=== PATIENT | female | born 1965 | race Caucasian/White ===

== ENCOUNTER 2020-06-22 15:55 | Inpatient (IN) ==
[2020-06-22] MEDS ORDERED: ASPIRIN 325 MG TABLET PO STA (16:30)
[2020-06-22] MEDS ORDERED: FAMOTIDINE 20 MG/2 ML VIAL IV STA (16:33)
[2020-06-22 16:38] LABS: Basophils % 0.4 % (0.0-0.8); Eosinophils # 0.1 10*3/uL (0.0-0.87); Hematocrit 47.1 VOL% (35.7-47.0); Hemoglobin 15.8 GM/DL (12.0-16.0); Immature Granulocytes % 0.3 %; Immature Granulocytes Absolute 0.03 #; Lymphocytes # 2.6 10*3/uL (1.4-4.0); Lymphocytes % 25.4 % (21.3-54.2); Mean Corpuscular HGB Conc 33.5 GM/DL (32-36); Mean Corpuscular Volume 99.8 FL (87-102); Mean Platelet Volume 9.2 FL (9.6-12.0); Monocytes % 5.7 % (1.7-12.7); Neutrophils % 67.2 % (38.7-73.9); Platelet Count 228 T/CUMM (130-400); Red Blood Count 4.72 MC/CUMM (3.8-5.5); Red Cell Distribution Width 13.1 % (9.3-17.3); White Blood Count 10.4 T/CUMM (4-12)
[2020-06-22 16:47] LABS: PT Patient Result 10.5 SECS (9.8-11.9); Partial Thromboplastin Time 28.5 SECS (23.9-33.8)
[2020-06-22 16:54] LABS: Albumin 3.3 G/DL (3.4-5.0); Bilirubin,Total 0.8 MG/DL (0.2-1.0); Calcium 8.5 MG/DL (8.5-10.1); Osmolality,Calculated 274.7 MOS/KG (273-304); Total Protein 6.5 G/DL (6.4-8.3)
[2020-06-22 17:35] LABS: ABG Base Excess 1.3 MMOL/L (-2.5-2.5); ABG HCO3 25.4 MMOL/L (20-26); ABG Oxygen Saturation 94.1 % (95-100); ABG PCO2 36.6 MM HG (35-48); ABG PH 7.443 (7.35-7.45); ABG PO2 70.8 MM HG (80-95); ABG TCO2 21.1 MMOL/L (23-27)
[2020-06-22] MEDS ORDERED: GLUCAGON 1 MG VIAL IM PRN (17:59)
[2020-06-22] MEDS ORDERED: DEXTROSE 50% 25 GM/50 ML VIAL IV PRN (17:59)
[2020-06-22] MEDS ORDERED: ONDANSETRON 4 MG/2 ML VIAL IV PRN (17:59)
[2020-06-22] MEDS ORDERED: MORPHINE 4 MG/1 ML VIAL IV PRN (18:06)
[2020-06-22] MEDS: ALBUTEROL 2.5 MG/3 ML NEB RESP TX SCH (19:36)
[2020-06-22] MEDS: methylPREDNISolone SOD SUC 40 MG/1 ML VIAL IV SCH (21:44)
[2020-06-22] MEDS: ENOXAPARIN 80 MG/0.8 ML SYRINGE SUBCUT SCH (21:44)
[2020-06-23] MEDS: ALBUTEROL 2.5 MG/3 ML NEB RESP TX SCH ×4 (00:06→19:30)
[2020-06-23] MEDS: methylPREDNISolone SOD SUC 40 MG/1 ML VIAL IV SCH ×3 (03:29→17:31)
[2020-06-23] MEDS: ENOXAPARIN 80 MG/0.8 ML SYRINGE SUBCUT SCH ×2 (06:24→17:31)
[2020-06-23 07:16] LABS: Basophils % 0.4 % (0.0-0.8); Hematocrit 50.1 VOL% (35.7-47.0); Hemoglobin 16.9 GM/DL (12.0-16.0); Immature Granulocytes % 0.2 %; Immature Granulocytes Absolute 0.01 #; Lymphocytes # 0.6 10*3/uL (1.4-4.0); Lymphocytes % 10.6 % (21.3-54.2); Mean Corpuscular HGB Conc 33.7 GM/DL (32-36); Mean Corpuscular Volume 99.8 FL (87-102); Mean Platelet Volume 9.5 FL (9.6-12.0); Monocytes % 0.7 % (1.7-12.7); Neutrophils % 88.1 % (38.7-73.9); Platelet Count 220 T/CUMM (130-400); Red Blood Count 5.02 MC/CUMM (3.8-5.5); White Blood Count 5.4 T/CUMM (4-12)
[2020-06-23 07:37] LABS: Lymphocytes 13 % (20-55); Ovalocytes Slight; Platelet Estimate Adequate; Segmented Neutrophils 87 % (50-85); Total Cells Counted 100
[2020-06-23 07:45] LABS: Calcium 9.1 MG/DL (8.5-10.1); Risk Ratio 2.49; Thyroid Stimulating Hormone 0.73 uIU/ml (0.358-3.74); VLDL CHOLESTEROL 9.8 MG/DL
[2020-06-23] MEDS: ASPIRIN EC 81 MG TABLET PO SCH (08:41)
[2020-06-23] MEDS: PANTOPRAZOLE 40 MG TABLET PO SCH (08:41)
[2020-06-23] MEDS: cefTRIAXone 2,000 MG in SYRINGE 1 EACH IV SCH (08:41)
[2020-06-23] MEDS: ATORVASTATIN 40 MG TABLET PO SCH (08:41)
[2020-06-23] MEDS: AZITHROMYCIN 250 MG TABLET PO SCH (10:13)
[2020-06-23 13:27] LABS: Apearance,Urine CLEAR (Clear); Bilirubin,Urine Negative (Negative); Blood, Urine Negative (Negative); Glucose,Urine (UA) Negative (Negative); Ketones,Urine Negative (Negative); Mucus,Urine Occasional /LPF (Occasional); Nitrite,Urine Negative (Negative); Protein,Urine Negative; RBC,Urine 2 /HPF (0-4); Squamous Epithelial Cell,Urine Few /HPF (0-10); Urine Color Yellow (Yellow); Urine Specific Gravity 1.023 (1.001-1.035); Urine Urobilinogen < 2.0 EU/DL (0.2-1.0); WBC,Urine 1 /HPF (0-6)
[2020-06-24] MEDS: ALBUTEROL 2.5 MG/3 ML NEB RESP TX SCH ×3 (00:18→13:05)
[2020-06-24] MEDS: methylPREDNISolone SOD SUC 40 MG/1 ML VIAL IV SCH ×2 (02:21→10:52)
[2020-06-24] MEDS: ENOXAPARIN 80 MG/0.8 ML SYRINGE SUBCUT SCH (06:15)
[2020-06-24 06:34] LABS: Troponin I 0.288 NG/ML (0.00-0.045)
[2020-06-24] MEDS ORDERED: ACETAMINOPHEN 325 MG TABLET PO PRN (08:58)
[2020-06-24] MEDS: ASPIRIN EC 81 MG TABLET PO SCH (09:12)
[2020-06-24] MEDS: cefTRIAXone 2,000 MG in SYRINGE 1 EACH IV SCH (09:13)
[2020-06-24] MEDS: AZITHROMYCIN 250 MG TABLET PO SCH (09:13)
[2020-06-24] MEDS: PANTOPRAZOLE 40 MG TABLET PO SCH (09:13)
[2020-06-24] MEDS: ATORVASTATIN 40 MG TABLET PO SCH (09:14)
[2020-06-24 11:54] VITALS: BP 125/72
== END 2020-06-24 13:54 | disposition home or self-care (01) | DRG 192 ==
LOC: N.ED 15:55 → N.EDINP 17:59 → N.TELES 18:36
PROVIDERS: ADMIT Internal Medicine; ATTEND Internal Medicine

== ENCOUNTER 2020-07-31 19:19 | Observation (INO) ==
[2020-07-31 20:19] LABS: Basophils # 0.1 10*3/uL (0.0-0.2); Basophils % 0.6 % (0.0-0.8); Eosinophils # 0.1 10*3/uL (0.0-0.87); Eosinophils % 0.6 % (0.00-10.9); Hematocrit 45.4 VOL% (35.7-47.0); Hemoglobin 15.3 GM/DL (12.0-16.0); Immature Granulocytes % 0.3 %; Immature Granulocytes Absolute 0.04 #; Lymphocytes # 4.8 10*3/uL (1.4-4.0); Lymphocytes % 33.2 % (21.3-54.2); Mean Corpuscular HGB Conc 33.7 GM/DL (32-36); Mean Corpuscular Volume 100.9 FL (87-102); Monocytes % 5.6 % (1.7-12.7); Neutrophils % 59.7 % (38.7-73.9); Platelet Count 224 T/CUMM (130-400); Red Cell Distribution Width 13.6 % (9.3-17.3); White Blood Count 14.3 T/CUMM (4-12)
[2020-07-31] MEDS ORDERED: SODIUM CHLORIDE 0.9% 1,000 ML IV STA (20:24)
[2020-07-31 20:30] LABS: Albumin 3.1 G/DL (3.4-5.0); Bilirubin,Total 0.7 MG/DL (0.2-1.0); Calcium 8.4 MG/DL (8.5-10.1); Osmolality,Calculated 280.5 MOS/KG (273-304); PT Patient Result 10.3 SECS (9.8-11.9); Partial Thromboplastin Time 24.8 SECS (23.9-33.8); Total Protein 6.6 G/DL (6.4-8.3)
[2020-07-31 20:35] LABS: Troponin I 0.084 NG/ML (0.00-0.045)
[2020-07-31 20:40] LABS: Anisocytosis 1+; Eosinophils 1 % (0-10); Lymphocytes 35 % (20-55); Macrocytosis 1+; Platelet Estimate Normal; Segmented Neutrophils 61 % (50-85); Total Cells Counted 100
[2020-08-01] MEDS ORDERED: MAGNESIUM SULF RIDER 2 GM in PREMIX 1 EACH IV PRN (01:29)
[2020-08-01] MEDS ORDERED: SODIUM CHLORIDE 0.45% 1,000 ML IV SCH (01:29)
[2020-08-01] MEDS ORDERED: MAGNESIUM SULF RIDER 4 GM in PREMIX 1 EACH IV PRN (01:29)
[2020-08-01] MEDS ORDERED: INFLUENZA VIRUS VACCINE 0.5 ML SYRINGE IM ONE (02:08)
[2020-08-01 07:44] VITALS: BP 134/63
== END 2020-08-01 09:55 | disposition home or self-care (01) ==
LOC: N.EDINP 19:19 → N.ED 19:19 → N.TELES 08-01 01:13
PROVIDERS: ADMIT Internal Medicine Cardiovascular Disease; ATTEND Internal Medicine Cardiovascular Disease

== ENCOUNTER 2021-07-30 02:24 | Observation (INO) ==
[2021-07-30] MEDS ORDERED: PIPERACILLIN/TAZOBACTAM 3,375 MG in SODIUM CHLORIDE 0.9% 100 ML IV STA (03:09)
[2021-07-30] MEDS ORDERED: methylPREDNISolone SOD SUC 125 MG/2 ML VIAL IV STA (03:09)
[2021-07-30] MEDS ORDERED: ONDANSETRON 4 MG/2 ML VIAL IV STA (03:09)
[2021-07-30] MEDS ORDERED: SODIUM CHLORIDE 0.9% 500 ML IV STA (03:09)
[2021-07-30] MEDS ORDERED: ALBUTEROL NEB SOLN 5 MG/ML 20 ML/BOTTLE CONT NEB SCH (03:30)
[2021-07-30 03:39] LABS: Basophils % 0.5 % (0.0-0.8); Eosinophils # 0.2 10*3/uL (0.0-0.87); Eosinophils % 1.9 % (0.00-10.9); Hematocrit 49.7 VOL% (35.7-47.0); Hemoglobin 16.5 GM/DL (12.0-16.0); Immature Granulocytes % 0.2 %; Immature Granulocytes Absolute 0.02 #; Lymphocytes # 2.3 10*3/uL (1.4-4.0); Lymphocytes % 26.6 % (21.3-54.2); Mean Corpuscular HGB Conc 33.2 GM/DL (32-36); Mean Corpuscular Volume 99.2 FL (87-102); Mean Platelet Volume 9.6 FL (9.6-12.0); Monocytes % 7.4 % (1.7-12.7); Neutrophils % 63.4 % (38.7-73.9); Platelet Count 215 T/CUMM (130-400); Red Blood Count 5.01 MC/CUMM (3.8-5.5); Red Cell Distribution Width 13.4 % (9.3-17.3); White Blood Count 8.5 T/CUMM (4-12)
[2021-07-30 04:04] LABS: Albumin 3.5 G/DL (3.4-5.0); Bilirubin,Total 0.7 MG/DL (0.20-1.00); Calcium 8.7 MG/DL (8.5-10.1); Osmolality,Calculated 271.8 MOS/KG (273-304)
[2021-07-30] MEDS ORDERED: ASPIRIN EC 325 MG TABLET PO STA (04:13)
[2021-07-30] MEDS ORDERED: ENOXAPARIN 100 MG/ML SYRINGE SUBCUT STA (04:13)
[2021-07-30 04:25] LABS: ABG Base Excess -0.3 MMOL/L (-2.5-2.5); ABG HCO3 23.9 MMOL/L (20-26); ABG Oxygen Saturation 87.1 % (95-100); ABG PCO2 42.1 MM HG (35-48); ABG PH 7.381 (7.35-7.45); ABG PO2 58.1 MM HG (80-95); ABG TCO2 21.2 MMOL/L (23-27)
[2021-07-30] MEDS ORDERED: DEXTROSE 50% 25 GM/50 ML VIAL IV PRN (05:37)
[2021-07-30] MEDS ORDERED: GLUCAGON 1 MG VIAL IM PRN (05:37)
[2021-07-30] MEDS ORDERED: ACETAMINOPHEN 325 MG TABLET PO PRN (05:37)
[2021-07-30] MEDS ORDERED: hydrALAZINE 20 MG/1 ML VIAL IV PRN (05:37)
[2021-07-30] MEDS ORDERED: DOCUSATE SODIUM 100 MG CAPSULE PO PRN (05:37)
[2021-07-30] MEDS: ALBUTEROL/IPRATROPIUM 3 ML NEB RESP TX SCH ×3 (07:43→20:25)
[2021-07-30 08:10] LABS: Risk Ratio 2.4; Thyroid Stimulating Hormone 1.15 uIU/ml (0.358-3.74); VLDL Cholesterol 8.6 MG/DL
[2021-07-30] MEDS ORDERED: ENOXAPARIN 40 MG/0.4 ML SYRINGE SUBCUT SCH (09:00)
[2021-07-30] MEDS: methylPREDNISolone SOD SUC 40 MG/1 ML VIAL IV SCH ×2 (09:20→20:58)
[2021-07-30] MEDS: PANTOPRAZOLE 40 MG TABLET PO SCH (09:23)
[2021-07-30] MEDS: LEVOFLOXACIN INJ 750 MG/150 ML PREMIX IV SCH (09:28)
[2021-07-30 09:51] LABS: Bilirubin,Urine Negative (Negative); Blood, Urine Negative (Negative); Glucose,Urine (UA) Negative (Negative); Ketones,Urine Negative (Negative); Mucus,Urine Occasional /LPF (Occasional); Nitrite,Urine Negative (Negative); Protein,Urine Negative; RBC,Urine 4 /HPF (0-4); Squamous Epithelial Cell,Urine Occasional /HPF (0-10); Urine Appearance Slightly Hazy (Clear); Urine Color Yellow (Yellow); Urine Specific Gravity 1.023 (1.001-1.035); Urine Urobilinogen < 2.0 EU/DL (0.2-1.0)
[2021-07-30 10:18] LABS: Barbiturates Screen,Urine Negative (Negative); Benzodiazepines Screen,Urine Negative (Negative); Cannabinoid Screen,Urine Positive (Negative); Opiate Screen,Urine Negative (Negative); Phencyclidine Screen,Urine Negative (Negative)
[2021-07-30] MEDS: ENOXAPARIN 80 MG/0.8 ML SYRINGE SUBCUT SCH (14:04)
[2021-07-30] MEDS ORDERED: INFLUENZA VIRUS VACCINE 0.5 ML SYRINGE IM ONE (14:11)
[2021-07-31] MEDS: ALBUTEROL/IPRATROPIUM 3 ML NEB RESP TX SCH ×2 (01:33→07:18)
[2021-07-31] MEDS: ENOXAPARIN 80 MG/0.8 ML SYRINGE SUBCUT SCH (02:38)
[2021-07-31 04:42] LABS: Barbiturates Screen,Urine Negative (Negative); Benzodiazepines Screen,Urine Negative (Negative); Cannabinoid Screen,Urine Positive (Negative); Opiate Screen,Urine Positive (Negative); Phencyclidine Screen,Urine Negative (Negative)
[2021-07-31 05:45] LABS: Basophils % 0.3 % (0.0-0.8); Hematocrit 47.2 VOL% (35.7-47.0); Hemoglobin 15.8 GM/DL (12.0-16.0); Immature Granulocytes % 0.5 %; Immature Granulocytes Absolute 0.06 #; Lymphocytes # 1.1 10*3/uL (1.4-4.0); Lymphocytes % 10.4 % (21.3-54.2); Mean Corpuscular HGB Conc 33.5 GM/DL (32-36); Mean Corpuscular Volume 99.6 FL (87-102); Mean Platelet Volume 9.7 FL (9.6-12.0); Monocytes % 2.9 % (1.7-12.7); Neutrophils % 85.9 % (38.7-73.9); Platelet Count 208 T/CUMM (130-400); Red Blood Count 4.74 MC/CUMM (3.8-5.5); Red Cell Distribution Width 13.2 % (9.3-17.3); White Blood Count 10.9 T/CUMM (4-12)
[2021-07-31 06:14] LABS: Calcium 8.9 MG/DL (8.5-10.1); Potassium 4.1 MMOL/L (3.5-5.1)
[2021-07-31] MEDS: methylPREDNISolone SOD SUC 40 MG/1 ML VIAL IV SCH (09:21)
[2021-07-31] MEDS: PANTOPRAZOLE 40 MG TABLET PO SCH (09:21)
[2021-07-31] MEDS: LEVOFLOXACIN INJ 750 MG/150 ML PREMIX IV SCH (09:22)
[2021-07-31 09:52] VITALS: BP 132/68
== END 2021-07-31 11:08 | disposition home or self-care (01) ==
LOC: N.ED 02:24 → N.EDINP 02:24 → N.TELEN 13:22
PROVIDERS: ADMIT Internal Medicine; ATTEND Internal Medicine

== ENCOUNTER 2022-02-08 16:59 | Inpatient (IN) ==
[2022-02-08] MEDS ORDERED: ALBUTEROL/IPRATROPIUM 3 ML NEB RESP TX STA (18:23)
[2022-02-08] MEDS ORDERED: SODIUM CHLORIDE 0.9% 500 ML IV STA (18:23)
[2022-02-08] MEDS ORDERED: methylPREDNISolone SOD SUC 125 MG/2 ML VIAL IV STA (18:23)
[2022-02-08] MEDS ORDERED: cefTRIAXone 1,000 MG in SODIUM CHLORIDE 0.9% 100 ML IV STA (18:23)
[2022-02-08] MEDS ORDERED: ONDANSETRON 4 MG/2 ML VIAL IV STA (18:23)
[2022-02-08] MEDS ORDERED: ALBUTEROL NEB SOLN 5 MG/ML 20 ML/BOTTLE CONT NEB SCH (18:30)
[2022-02-08 18:56] LABS: Basophils % 0.4 % (0.0-0.8); Eosinophils # 0.1 10*3/uL (0.0-0.87); Eosinophils % 2.4 % (0.00-10.9); Hematocrit 45.6 VOL% (35.7-47.0); Hemoglobin 15.3 GM/DL (12.0-16.0); Immature Granulocytes % 0.4 %; Immature Granulocytes Absolute 0.02 #; Lymphocytes # 1.9 10*3/uL (1.4-4.0); Mean Corpuscular HGB Conc 33.6 GM/DL (32-36); Mean Corpuscular Volume 98.1 FL (87-102); Mean Platelet Volume 9.7 FL (9.6-12.0); Monocytes # 0.5 10*3/uL (0.11-0.8); Monocytes % 9.1 % (1.7-12.7); Neutrophils % 52.7 % (38.7-73.9); Platelet Count 197 T/CUMM (130-400); Red Blood Count 4.65 MC/CUMM (3.8-5.5); Red Cell Distribution Width 13.8 % (9.3-17.3); White Blood Count 5.5 T/CUMM (4-12)
[2022-02-08 18:58] LABS: Alanine Aminotransferase 19 U/L (13-56); Albumin 3.1 G/DL (3.4-5.0); Alkaline Phosphatase 116 U/L (45-117); Aspartate Amino Transferase 21 U/L (0-37); Bilirubin,Total < 0.39 MG/DL (0.20-1.00); Blood Urea Nitrogen 12 MG/DL (7-18); Calcium 8.6 MG/DL (8.5-10.1); Carbon Dioxide 27 MMOL/L (21-32); Chloride 108 MMOL/L (98-107); Estimated Glom Filtration Rate 100 ML/MIN; Glucose 90 MG/DL (74-106); Osmolality,Calculated 280.3 MOS/KG (273-304); Potassium 4.2 MMOL/L (3.5-5.1); Sodium 141 MMOL/L (136-145); Total Protein 6.4 G/DL (6.4-8.2)
[2022-02-08] MEDS ORDERED: FAMOTIDINE 20 MG/2 ML VIAL IV STA (19:31)
[2022-02-08] MEDS ORDERED: diphenhydrAMINE 50 MG/1 ML VIAL IV STA (19:31)
[2022-02-08] MEDS ORDERED: ENOXAPARIN 100 MG/ML SYRINGE SUBCUT STA (20:12)
[2022-02-08] MEDS ORDERED: GLUCAGON 1 MG VIAL IM PRN (20:20)
[2022-02-08] MEDS ORDERED: ACETAMINOPHEN 325 MG TABLET PO PRN (20:20)
[2022-02-08] MEDS ORDERED: ONDANSETRON 4 MG/2 ML VIAL IV PRN (20:20)
[2022-02-08] MEDS ORDERED: ASPIRIN CHEW 81 MG TABLET PO ONE (20:28)
[2022-02-08] MEDS ORDERED: MORPHINE 2 MG/1 ML SYRINGE IV PRN (20:28)
[2022-02-08] MEDS ORDERED: DEXTROSE 10% 250 ML BAG IV PRN (20:40)
[2022-02-08] MEDS ORDERED: NICOTINE 14 MG/24 HR PATCH TRANSDERM PRN (21:25)
[2022-02-08] MEDS: DOCUSATE SODIUM 100 MG CAPSULE PO SCH (21:37)
[2022-02-08] MEDS: carvediloL 3.125 MG TABLET PO SCH (21:38)
[2022-02-08] MEDS: guaiFENesin/DM ER 600-30 MG TABLET PO SCH (21:38)
[2022-02-08] MEDS: AZITHROMYCIN INJ 500 MG in SODIUM CHLORIDE 0.9% 250 ML IV SCH (22:34)
[2022-02-09] MEDS: ALBUTEROL/IPRATROPIUM 3 ML NEB RESP TX SCH ×4 (01:11→19:30)
[2022-02-09] MEDS: methylPREDNISolone SOD SUC 40 MG/1 ML VIAL IV SCH ×3 (02:16→18:00)
[2022-02-09 04:42] LABS: Basophils % 0.2 % (0.0-0.8); Hematocrit 47.2 VOL% (35.7-47.0); Hemoglobin 15.5 GM/DL (12.0-16.0); Immature Granulocytes % 0.2 %; Immature Granulocytes Absolute 0.01 #; Lymphocytes # 0.6 10*3/uL (1.4-4.0); Lymphocytes % 13.2 % (21.3-54.2); Mean Corpuscular HGB Conc 32.8 GM/DL (32-36); Mean Corpuscular Volume 100.4 FL (87-102); Mean Platelet Volume 9.5 FL (9.6-12.0); Monocytes % 0.7 % (1.7-12.7); Neutrophils % 85.7 % (38.7-73.9); Platelet Count 177 T/CUMM (130-400); Red Cell Distribution Width 13.8 % (9.3-17.3); White Blood Count 4.2 T/CUMM (4-12)
[2022-02-09 04:50] LABS: PT Patient Result 11.1 SECS (10.5-12.0); Partial Thromboplastin Time 33.8 SECS (23.8-32.1)
[2022-02-09 05:05] LABS: Calcium 8.4 MG/DL (8.5-10.1); Osmolality,Calculated 281.4 MOS/KG (273-304); Potassium 4.3 MMOL/L (3.5-5.1); Risk Ratio 2.53; VLDL Cholesterol 12.4 MG/DL
[2022-02-09] MEDS: PANTOPRAZOLE 40 MG TABLET PO SCH (09:09)
[2022-02-09] MEDS: DOCUSATE SODIUM 100 MG CAPSULE PO SCH ×2 (09:09→21:32)
[2022-02-09] MEDS: ASPIRIN EC 325 MG TABLET PO SCH (09:09)
[2022-02-09] MEDS: lisinopriL 2.5 MG TABLET PO SCH (09:09)
[2022-02-09] MEDS: guaiFENesin/DM ER 600-30 MG TABLET PO SCH ×2 (09:09→21:31)
[2022-02-09] MEDS: carvediloL 3.125 MG TABLET PO SCH ×2 (09:10→21:32)
[2022-02-09] MEDS: ENOXAPARIN 80 MG/0.8 ML SYRINGE SUBCUT SCH ×3 (09:10→21:33)
[2022-02-09] MEDS ORDERED: cefTRIAXone 1,000 MG in SODIUM CHLORIDE 0.9% 100 ML IV SCH (18:00)
[2022-02-09] MEDS: AZITHROMYCIN INJ 500 MG in SODIUM CHLORIDE 0.9% 250 ML IV SCH (21:31)
[2022-02-09] MEDS: ATORVASTATIN 40 MG TABLET PO SCH (21:32)
[2022-02-10] MEDS: ALBUTEROL/IPRATROPIUM 3 ML NEB RESP TX SCH ×4 (00:50→19:52)
[2022-02-10] MEDS: methylPREDNISolone SOD SUC 40 MG/1 ML VIAL IV SCH ×3 (01:45→17:51)
[2022-02-10 04:39] LABS: Basophils % 0.2 % (0.0-0.8); Hematocrit 45.8 VOL% (35.7-47.0); Hemoglobin 15.3 GM/DL (12.0-16.0); Immature Granulocytes % 0.4 %; Immature Granulocytes Absolute 0.06 #; Lymphocytes # 1.2 10*3/uL (1.4-4.0); Mean Corpuscular HGB Conc 33.4 GM/DL (32-36); Mean Corpuscular Volume 99.8 FL (87-102); Mean Platelet Volume 9.4 FL (9.6-12.0); Monocytes # 0.2 10*3/uL (0.11-0.8); Monocytes % 1.4 % (1.7-12.7); Platelet Count 195 T/CUMM (130-400); Red Blood Count 4.59 MC/CUMM (3.8-5.5); Red Cell Distribution Width 13.9 % (9.3-17.3); White Blood Count 14.7 T/CUMM (4-12)
[2022-02-10 05:02] LABS: Calcium 8.6 MG/DL (8.5-10.1); Osmolality,Calculated 279.5 MOS/KG (273-304); Potassium 4.6 MMOL/L (3.5-5.1)
[2022-02-10] MEDS: PANTOPRAZOLE 40 MG TABLET PO SCH (09:14)
[2022-02-10] MEDS: carvediloL 3.125 MG TABLET PO SCH ×2 (09:14→21:21)
[2022-02-10] MEDS: ASPIRIN EC 325 MG TABLET PO SCH (09:14)
[2022-02-10] MEDS: guaiFENesin/DM ER 600-30 MG TABLET PO SCH ×2 (09:14→21:21)
[2022-02-10] MEDS: DOCUSATE SODIUM 100 MG CAPSULE PO SCH ×2 (09:14→21:21)
[2022-02-10] MEDS: lisinopriL 2.5 MG TABLET PO SCH (09:14)
[2022-02-10] MEDS: ENOXAPARIN 80 MG/0.8 ML SYRINGE SUBCUT SCH ×2 (09:16→21:21)
[2022-02-10] MEDS: NICOTINE 14 MG/24 HR PATCH TRANSDERM SCH (09:32)
[2022-02-10] MEDS: ATORVASTATIN 40 MG TABLET PO SCH (21:21)
[2022-02-10] MEDS: AZITHROMYCIN INJ 500 MG in SODIUM CHLORIDE 0.9% 250 ML IV SCH (21:21)
[2022-02-11] MEDS: ALBUTEROL/IPRATROPIUM 3 ML NEB RESP TX SCH ×4 (01:20→19:50)
[2022-02-11] MEDS: methylPREDNISolone SOD SUC 40 MG/1 ML VIAL IV SCH ×2 (02:51→14:15)
[2022-02-11 04:55] LABS: Basophils % 0.1 % (0.0-0.8); Eosinophils % 0.1 % (0.00-10.9); Hematocrit 45.4 VOL% (35.7-47.0); Hemoglobin 14.9 GM/DL (12.0-16.0); Immature Granulocytes % 0.4 %; Immature Granulocytes Absolute 0.06 #; Lymphocytes % 13.6 % (21.3-54.2); Mean Corpuscular HGB Conc 32.8 GM/DL (32-36); Mean Corpuscular Volume 101.1 FL (87-102); Mean Platelet Volume 9.9 FL (9.6-12.0); Monocytes # 0.4 10*3/uL (0.11-0.8); Monocytes % 2.4 % (1.7-12.7); Neutrophils % 83.4 % (38.7-73.9); Platelet Count 211 T/CUMM (130-400); Red Blood Count 4.49 MC/CUMM (3.8-5.5); Red Cell Distribution Width 13.9 % (9.3-17.3); White Blood Count 14.7 T/CUMM (4-12)
[2022-02-11 05:14] LABS: Calcium 8.2 MG/DL (8.5-10.1); Osmolality,Calculated 288.1 MOS/KG (273-304); Potassium 3.6 MMOL/L (3.5-5.1)
[2022-02-11] MEDS: NICOTINE 14 MG/24 HR PATCH TRANSDERM SCH (10:04)
[2022-02-11] MEDS ORDERED: REGADENOSON 0.4 MG/5 ML SYRINGE IV ONE (10:32)
[2022-02-11] MEDS: carvediloL 3.125 MG TABLET PO SCH ×2 (10:59→21:14)
[2022-02-11] MEDS: guaiFENesin/DM ER 600-30 MG TABLET PO SCH ×2 (10:59→21:13)
[2022-02-11] MEDS: lisinopriL 2.5 MG TABLET PO SCH (11:00)
[2022-02-11] MEDS: ASPIRIN EC 325 MG TABLET PO SCH (11:00)
[2022-02-11] MEDS: ENOXAPARIN 80 MG/0.8 ML SYRINGE SUBCUT SCH ×3 (11:00→21:14)
[2022-02-11] MEDS: PANTOPRAZOLE 40 MG TABLET PO SCH (11:00)
[2022-02-11] MEDS: DOCUSATE SODIUM 100 MG CAPSULE PO SCH ×2 (11:00→21:13)
[2022-02-11 12:58] LABS: Arterial Base Excess iSTAT 3 MMOL/L (-2.5-2.5); Arterial Bicarbonate iSTAT 27.7 MMOL/L (20-26); Arterial O2 Saturation iSTAT 87 % (95-100); Arterial PCO2 iSTAT 43 MM HG (35-48); Arterial PO2 iSTAT 52 MM HG (80-95); Arterial Total CO2 iSTAT 29 MMO/L (23-27); Arterial pH iSTAT 7.421 (7.35-7.45)
[2022-02-11] MEDS: AZITHROMYCIN INJ 500 MG in SODIUM CHLORIDE 0.9% 250 ML IV SCH (21:13)
[2022-02-11] MEDS: ATORVASTATIN 40 MG TABLET PO SCH (21:14)
[2022-02-12] MEDS: ALBUTEROL/IPRATROPIUM 3 ML NEB RESP TX SCH ×2 (01:10→07:05)
[2022-02-12] MEDS: methylPREDNISolone SOD SUC 40 MG/1 ML VIAL IV SCH (04:13)
[2022-02-12 04:56] LABS: Basophils % 0.3 % (0.0-0.8); Eosinophils # 0.1 10*3/uL (0.0-0.87); Eosinophils % 0.6 % (0.00-10.9); Hematocrit 46.1 VOL% (35.7-47.0); Hemoglobin 15.2 GM/DL (12.0-16.0); Immature Granulocytes % 0.2 %; Immature Granulocytes Absolute 0.02 #; Lymphocytes # 3.7 10*3/uL (1.4-4.0); Mean Corpuscular Volume 99.6 FL (87-102); Mean Platelet Volume 9.3 FL (9.6-12.0); Monocytes # 0.6 10*3/uL (0.11-0.8); Monocytes % 5.4 % (1.7-12.7); Neutrophils % 61.5 % (38.7-73.9); Platelet Count 204 T/CUMM (130-400); Red Blood Count 4.63 MC/CUMM (3.8-5.5); Red Cell Distribution Width 13.7 % (9.3-17.3); White Blood Count 11.4 T/CUMM (4-12)
[2022-02-12 05:09] LABS: Calcium 8.4 MG/DL (8.5-10.1); Osmolality,Calculated 286.1 MOS/KG (273-304); Potassium 3.6 MMOL/L (3.5-5.1)
[2022-02-12] MEDS ORDERED: ENOXAPARIN 40 MG/0.4 ML SYRINGE SUBCUT SCH (09:00)
[2022-02-12] MEDS: PANTOPRAZOLE 40 MG TABLET PO SCH (09:29)
[2022-02-12] MEDS: carvediloL 3.125 MG TABLET PO SCH (09:29)
[2022-02-12] MEDS: ASPIRIN EC 325 MG TABLET PO SCH (09:29)
[2022-02-12] MEDS: DOCUSATE SODIUM 100 MG CAPSULE PO SCH (09:29)
[2022-02-12] MEDS: guaiFENesin/DM ER 600-30 MG TABLET PO SCH (09:29)
[2022-02-12] MEDS: lisinopriL 2.5 MG TABLET PO SCH (09:30)
[2022-02-12] MEDS: NICOTINE 14 MG/24 HR PATCH TRANSDERM SCH (09:30)
[2022-02-12 11:47] VITALS: BP 161/84
== END 2022-02-12 11:20 | disposition home or self-care (01) | DRG 193 ==
LOC: N.ED 16:59 → N.EDINP 20:20 → N.TELEN 22:38
PROVIDERS: ADMIT Emergency Medicine; ATTEND Emergency Medicine

== ENCOUNTER 2022-07-03 03:16 | Observation (INO) ==
[2022-07-03 03:32] LABS: Basophils # 0.1 10*3/uL (0.0-0.2); Basophils % 0.5 % (0.0-0.8); Eosinophils # 0.1 10*3/uL (0.0-0.87); Eosinophils % 1.5 % (0.00-10.9); Hemoglobin 15.1 GM/DL (12.0-16.0); Immature Granulocytes % 0.3 %; Immature Granulocytes Absolute 0.03 #; Lymphocytes # 2.7 10*3/uL (1.4-4.0); Lymphocytes % 28.2 % (21.3-54.2); Mean Corpuscular HGB Conc 32.8 GM/DL (32-36); Mean Platelet Volume 9.3 FL (9.6-12.0); Monocytes # 0.6 10*3/uL (0.11-0.8); Monocytes % 6.5 % (1.7-12.7); Platelet Count 218 T/CUMM (130-400); Red Cell Distribution Width 13.4 % (9.3-17.3); White Blood Count 9.6 T/CUMM (4-12)
[2022-07-03 03:43] LABS: INR 0.9; Partial Thromboplastin Time 27.7 SECS (23.7-32.9)
[2022-07-03 03:58] LABS: Albumin 3.1 G/DL (3.4-5.0); Bilirubin,Total 0.4 MG/DL (0.20-1.00); Calcium 8.6 MG/DL (8.5-10.1); Osmolality,Calculated 280.4 MOS/KG (273-304); Potassium 3.8 MMOL/L (3.5-5.1); Total Protein 6.6 G/DL (6.4-8.2)
[2022-07-03] MEDS ORDERED: ASPIRIN CHEW 81 MG TABLET PO STA (04:12)
[2022-07-03] MEDS ORDERED: SODIUM CHLORIDE 0.9% 1,000 ML IV STA (04:12)
[2022-07-03] MEDS ORDERED: ENOXAPARIN 100 MG/ML SYRINGE SUBCUT ONE (04:13)
[2022-07-03] MEDS ORDERED: MORPHINE 2 MG/1 ML SYRINGE IV STA (04:13)
[2022-07-03] MEDS ORDERED: ONDANSETRON 4 MG/2 ML VIAL IV ONE (04:13)
[2022-07-03] MEDS ORDERED: GLUCAGON 1 MG VIAL IM PRN (05:15)
[2022-07-03] MEDS ORDERED: DEXTROSE 10% 250 ML BAG IV PRN (05:15)
[2022-07-03] MEDS ORDERED: ONDANSETRON 4 MG/2 ML VIAL IV PRN (05:20)
[2022-07-03] MEDS ORDERED: MORPHINE 2 MG/1 ML SYRINGE IV PRN (05:20)
[2022-07-03] MEDS ORDERED: hydrALAZINE 20 MG/1 ML VIAL IV PRN (05:20)
[2022-07-03] MEDS ORDERED: SODIUM CHLORIDE 0.9% 1,000 ML IV SCH (05:30)
[2022-07-03] MEDS ORDERED: ALBUTEROL 2.5 MG/3 ML NEB RESP TX PRN (07:00)
[2022-07-03] MEDS ORDERED: FLUTICASONE/SALMETEROL 100-50 DISKUS 14 DOSE INH SCH (09:00)
[2022-07-03] MEDS: PANTOPRAZOLE 40 MG TABLET PO SCH ×2 (09:09→09:10)
[2022-07-03] MEDS ORDERED: ISOSORBIDE MONONITRATE 30 MG TABLET PO SCH (12:30)
[2022-07-03 12:59] VITALS: BP 125/66
[2022-07-04] MEDS ORDERED: ENOXAPARIN 40 MG/0.4 ML SYRINGE SUBCUT SCH (09:00)
== END 2022-07-03 14:29 | disposition home or self-care (01) ==
LOC: N.ED 03:16 → N.EDINP 03:16 → N.5E 06:02
PROVIDERS: ADMIT Internal Medicine; ATTEND Internal Medicine